=== PATIENT | female | born 1945 | race Caucasian/White ===

== ENCOUNTER 2019-12-20 14:38 | Observation (INO) | payer MEDICARE, BC ==
--- NOTE | 2019-12-20 15:27 | ED ---
General Adult HPI - General Chief complaint: Arrhythmia/Palpitations Stated complaint: Abnormal EKG Time Seen by Provider: 12/20/19 14:56 Source: patient, RN notes reviewed, old records reviewed Mode of arrival: ambulatory Limitations: no limitations - History of Present Illness Initial comments: 74-year-old female history of hypertension presenting for evaluation of palpitations.. Patient has had 3 weeks of palpitations, she was initiated on a blood pressure medication a proximally 3 weeks ago and on certain of the name of this medication. She denies any associated chest pain or dyspnea. She denies fever or chills. She denies abdominal pain nausea or vomiting. No diarrhea. She has been eating and drinking normally. She has history of mitral valve prolapse, no known coronary artery disease. She was sent in for evaluation from her primary care physician with EKG showing left bundle branch block with no history. Patient denies any chest pain in the last 3 weeks. - Related Data Allergies Allergy/AdvReac Type Severity Reaction Status Date / Time Penicillins Allergy Swelling Verified 12/20/19 14:45 Review of Systems ROS Statement: Those systems with pertinent positive or pertinent negative responses have been documented in the HPI. ROS Other: All systems not noted in ROS Statement are negative. Past Medical History Past Medical History: Cancer History of Any Multi-Drug Resistant Organisms: None Reported Past Surgical History: Breast Surgery Additional Past Surgical History / Comment(s): multiple facial surgeries Past Psychological History: No Psychological Hx Reported Smoking Status: Never smoker Past Alcohol Use History: None Reported Past Drug Use History: None Reported General Exam Limitations: no limitations General appearance: alert, in no apparent distress Head exam: Present: atraumatic, normocephalic Eye exam: Present: normal appearance, PERRL ENT exam: Present: normal exam Neck exam: Present: normal inspection, tenderness Respiratory exam: Present: normal lung sounds bilaterally. Absent: respiratory distress, wheezes, rhonchi Cardiovascular Exam: Present: regular rate, normal rhythm GI/Abdominal exam: Present: soft. Absent: distended, tenderness, guarding, rebound Extremities exam: Present: normal inspection, normal capillary refill. Absent: pedal edema Back exam: Present: normal inspection Neurological exam: Present: alert, oriented X3, CN II-XII intact. Absent: motor sensory deficit Psychiatric exam: Present: normal affect, normal mood Skin exam: Present: warm, dry, intact. Absent: cyanosis, diaphoretic Course Vital Signs 12/20/19 12/20/19 12/20/19 14:39 16:00 16:30 Temperature 97.8 F Pulse Rate 100 87 90 Respiratory 20 18 18 Rate Blood Pressure 160/79 144/70 142/68 O2 Sat by Pulse 99 Oximetry EKG Findings - EKG Comments: EKG Findings:: EKG: Sinus tachycardia, left bundle branch block, rate of 104, ID interval 150, QRS duration 132 and a QTC 512, no old for comparison. Medical Decision Making - Medical Decision Making 74 female presenting with palpitations and left bundle branch block at its primary care office. She sent into the emergency department for evaluation. She has no known history of left bundle branch block, no old EKG for comparison. She is asymptomatic at the time my evaluation. She denies any chest pain in the past 3 weeks. No dyspnea. Only palpitations. She was recently initiated on 2 antihypertensive medication but is uncertain what this dictation is. She is well-appearing with stable vitals. She has a left bundle branch block on EKG and mild sinus tachycardia. Workup reveals normal CBC, she has an elevated d- dimer at 3 which is evaluated with CT angiography of the chest and is negative for pulmonary embolism. She has normal electrolytes. She has a negative troponin. She will be kept in observation for telemetry, cardiology consultation, and serial cardiac enzymes as this is a new left bundle branch block. - Lab Data Result diagrams: 12/20/19 15:09 12/20/19 15:09 Lab Results 12/20/19 12/20/19 12/20/19 Range/Units 15:09 15:09 15:09 WBC 9.4 (3.8-10.6) k/uL RBC 4.53 (3.80-5.40) m/uL Hgb 14.1 (11.4-16.0) gm/dL Hct 42.9 (34.0-46.0) % MCV 94.8 (80.0-100.0) fL MCH 31.1 (25.0-35.0) pg MCHC 32.8 (31.0-37.0) g/dL RDW 12.4 (11.5-15.5) % Plt Count 311 (150-450) k/uL Neutrophils % 61 % Lymphocytes % 28 % Monocytes % 6 % Eosinophils % 2 % Basophils % 1 % Neutrophils # 5.7 (1.3-7.7) k/uL Lymphocytes # 2.7 (1.0-4.8) k/uL Monocytes # 0.6 (0-1.0) k/uL Eosinophils # 0.2 (0-0.7) k/uL Basophils # 0.1 (0-0.2) k/uL PT 9.4 (9.0-12.0) sec INR 0.9 (<1.2) APTT 20.6 L (22.0-30.0) sec D-Dimer (<0.60) mg/L FEU Sodium 139 (137-145) mmol/L Potassium 4.5 (3.5-5.1) mmol/L Chloride 105 (98-107) mmol/L Carbon Dioxide 22 (22-30) mmol/L Anion Gap 12 mmol/L BUN 13 (7-17) mg/dL Creatinine 0.57 (0.52-1.04) mg/dL Est GFR (CKD-EPI)AfAm >90 (>60 ml/min/1.73 sqM) Est GFR (CKD-EPI)NonAf >90 (>60 ml/min/1.73 sqM) Glucose 98 (74-99) mg/dL Calcium 9.9 (8.4-10.2) mg/dL Magnesium 2.1 (1.6-2.3) mg/dL Total Bilirubin 1.0 (0.2-1.3) mg/dL AST 32 (14-36) U/L ALT 16 (4-34) U/L Alkaline Phosphatase 169 H (38-126) U/L Troponin I (0.000-0.034) ng/mL Total Protein 8.5 H (6.3-8.2) g/dL Albumin 4.5 (3.5-5.0) g/dL Urine Color Urine Appearance (Clear) Urine pH (5.0-8.0) Ur Specific [place] (1.001-1.035) Urine Protein (Negative) Urine Glucose (UA) (Negative) Urine Ketones (Negative) Urine Blood (Negative) Urine Nitrite (Negative) Urine Bilirubin (Negative) Urine Urobilinogen (<2.0) mg/dL Ur Leukocyte Esterase (Negative) Urine RBC (0-5) /hpf Urine WBC (0-5) /hpf Ur Squamous Epith Cells (0-4) /hpf Hyaline Casts (0-2) /lpf Urine Mucus (None) /hpf 12/20/19 12/20/19 12/20/19 Range/Units 15:09 15:09 16:36 WBC (3.8-10.6) k/uL RBC (3.80-5.40) m/uL Hgb (11.4-16.0) gm/dL Hct (34.0-46.0) % MCV (80.0-100.0) fL MCH (25.0-35.0) pg MCHC (31.0-37.0) g/dL RDW (11.5-15.5) % Plt Count (150-450) k/uL Neutrophils % % Lymphocytes % % Monocytes % % Eosinophils % % Basophils % % Neutrophils # (1.3-7.7) k/uL Lymphocytes # (1.0-4.8) k/uL Monocytes # (0-1.0) k/uL Eosinophils # (0-0.7) k/uL Basophils # (0-0.2) k/uL PT (9.0-12.0) sec INR (<1.2) APTT (22.0-30.0) sec D-Dimer 3.02 H (<0.60) mg/L FEU Sodium (137-145) mmol/L Potassium (3.5-5.1) mmol/L Chloride (98-107) mmol/L Carbon Dioxide (22-30) mmol/L Anion Gap mmol/L BUN (7-17) mg/dL Creatinine (0.52-1.04) mg/dL Est GFR (CKD-EPI)AfAm (>60 ml/min/1.73 sqM) Est GFR (CKD-EPI)NonAf (>60 ml/min/1.73 sqM) Glucose (74-99) mg/dL Calcium (8.4-10.2) mg/dL Magnesium (1.6-2.3) mg/dL Total Bilirubin (0.2-1.3) mg/dL AST (14-36) U/L ALT (4-34) U/L Alkaline Phosphatase (38-126) U/L Troponin I <0.012 (0.000-0.034) ng/mL Total Protein (6.3-8.2) g/dL Albumin (3.5-5.0) g/dL Urine Color Yellow Urine Appearance Clear (Clear) Urine pH 5.5 (5.0-8.0) Ur Specific [place] 1.011 (1.001-1.035) Urine Protein Negative (Negative) Urine Glucose (UA) Negative (Negative) Urine Ketones Negative (Negative) Urine Blood Small H (Negative) Urine Nitrite Negative (Negative) Urine Bilirubin Negative (Negative) Urine Urobilinogen <2.0 (<2.0) mg/dL Ur Leukocyte Esterase Trace H (Negative) Urine RBC 4 (0-5) /hpf Urine WBC 3 (0-5) /hpf Ur Squamous Epith Cells <1 (0-4) /hpf Hyaline Casts 1 (0-2) /lpf Urine Mucus Rare H (None) /hpf Disposition Clinical Impression: Palpitations, Left bundle branch block (LBBB) Disposition: ADMITTED IP TO THIS [facility] Condition: Stable Is patient prescribed a controlled substance at d/c from ED?: No Referrals: Melissa Barillas III, MD [Primary Care Provider] - 1-2 days Decision to Admit Reason: Admit from EC Decision Date: 12/20/19 Decision Time: 18:08
[2019-12-20 15:30] LABS: Basophils # (A) 0.1 k/uL (0-0.2); Basophils % (A) 1 %; Eosinophils # (A) 0.2 k/uL (0-0.7); Eosinophils % (A) 2 %; HCT 42.9 % (34.0-46.0); HGB 14.1 gm/dL (11.4-16.0); Lymphocytes # (A) 2.7 k/uL (1.0-4.8); Lymphocytes % (A) 28 %; MCH 31.1 pg (25.0-35.0); MCHC 32.8 g/dL (31.0-37.0); MCV 94.8 fL (80.0-100.0); Mean Platelet Volume 7.6; Monocytes # (A) 0.6 k/uL (0-1.0); Monocytes % (A) 6 %; Neutrophils # (A) 5.7 k/uL (1.3-7.7); Neutrophils % (A) 61 %; Platelet Count 311 k/uL (150-450); RBC 4.53 m/uL (3.80-5.40); RDW 12.4 % (11.5-15.5); WBC 9.4 k/uL (3.8-10.6)
--- NOTE | 2019-12-20 15:32 | XR ---
EXAMINATION TYPE: XR chest 2V DATE OF EXAM: 12/20/2019 COMPARISON: NONE HISTORY: Shortness of breath TECHNIQUE: Frontal and lateral views of the chest are obtained. FINDINGS: Scattered senescent parenchymal changes noted. Hyperinflation compatible with COPD. No evidence for infiltrate. No evidence for atelectasis. Heart size is stable. Mediastinal structures are stable and grossly unremarkable. No evidence for hilar prominence. Degenerative changes dorsal spine. IMPRESSION: 1. No evidence for acute pulmonary disease.
[2019-12-20 15:36] LABS: ALT 16 U/L (4-34); AST 32 U/L (14-36); African American GFR (CKD) >90 (>60 ml/min/1.73 sqM); Albumin 4.5 g/dL (3.5-5.0); Alkaline Phosphatase 169 U/L (38-126); Anion Gap 12 mmol/L; Blood Urea Nitrogen 13 mg/dL (7-17); Calcium 9.9 mg/dL (8.4-10.2); Carbon Dioxide 22 mmol/L (22-30); Chloride 105 mmol/L (98-107); Glucose 98 mg/dL (74-99); Magnesium 2.1 mg/dL (1.6-2.3); Non-African American GFR(CKD) >90 (>60 ml/min/1.73 sqM); Potassium 4.5 mmol/L (3.5-5.1); Sodium 139 mmol/L (137-145); Total Protein 8.5 g/dL (6.3-8.2)
[2019-12-20 15:42] LABS: INR 0.9 (<1.2); Prothrombin Time 9.4 sec (9.0-12.0)
[2019-12-20 15:43] LABS: Partial Thromboplastin Time 20.6 sec (22.0-30.0)
[2019-12-20 16:53] LABS: Appearance,Urine Clear (Clear); Bilirubin,Urine Negative (Negative); Blood,Urine Small (Negative); Color,Urine Yellow; Glucose,Urine (UA) Negative (Negative); Hyaline Casts,Urine 1 /lpf (0-2); Ketones,Urine Negative (Negative); Leukocyte Esterase,Urine Trace (Negative); Mucus,Urine Rare /hpf; Nitrite,Urine Negative (Negative); PH, Urine 5.5 (5.0-8.0); Protein,Urine Negative (Negative); RBC,Urine 4 /hpf (0-5); Specific Gravity,Urine 1.011 (1.001-1.035); Squamous Epithelial Cell,Urine <1 /hpf (0-4); Urobilinogen,Urine <2.0 mg/dL (<2.0); WBC,Urine 3 /hpf (0-5)
--- NOTE | 2019-12-20 17:46 | CT ---
EXAMINATION TYPE: CT angio chest DATE OF EXAM: 12/20/2019 COMPARISON: None HISTORY: Elevated d-dimer. CT DLP: 247.2 mGycm Automated exposure control for dose reduction was used. CONTRAST: Performed with IV Contrast, patient injected with 100 mL of Isovue 370. Multiple axial sections were obtained from the thoracic inlet to the diaphragm with intravenous contr ast. There are 3-D post processed images. Mediastinum is intact. Thoracic aorta is atheromatous. The ascending aorta measures 3.5 cm. There is no evidence of dissection. There is no mediastinal adenopathy. There are no hilar masses. There is normal contrast opacification of the pulmonary arteries. There are no filling defects. The lungs are clear of infiltrate. There is no evidence of a pulmonary mass. There is mild reticular density at the right lung apex consistent with scarring. There is no pleural effusion or pneumothorax . There are calcified gallstones. The bony thorax is intact. IMPRESSION: No evidence of pulmonary embolism.
[2019-12-20] MEDS ORDERED: SODIUM CHLORIDE 0.9% 500 ML 500 ML IV ONE (17:58)
[2019-12-20] MEDS ORDERED: ASPIRIN 325 MG TAB PO STA (17:58)
[2019-12-20] MEDS ORDERED: NALOXONE 0.4 MG/ML 1 ML VIAL IV PRN (18:05)
[2019-12-20] MEDS ORDERED: ACETAMINOPHEN TAB 325 MG TAB PO PRN (18:05)
[2019-12-20] MEDS: SODIUM CHLORIDE 0.9% 1,000 ML IV SCH ×2 (18:40→21:37)
--- NOTE | 2019-12-21 09:53 | P.CRDCN ---
History of Present Illness Consult date: 12/21/19 Requesting physician: Mercedez Duque Consult reason: atrial fibrillation Chief complaint: Palpitations History of present illness: This is a pleasant 74-year-old female with recent diagnosis of hypertension, nondiabetic, she is unsure of her cholesterol, she is a nonsmoker, rarely drinks alcohol, has one cup of coffee per day. Presents to the hospital with symptoms of palpitations. Patient states she's been getting intermittent palpitations off and on for approximately one month duration, she does state at times with that that she gets mild dizziness, she denies any shortness of breath, no chest discomfort, no syncope. EKG on presentation here showed a sinus tachycardia with a left bundle-branch block pattern, nonspecific ST-T wave changes. On review of the monitor strips, patient was noted to have paroxysmal atrial fibrillation. Blood pressure 120/70 with a heart rate of 80, 96% on room air. White blood cell count 9.4, hemoglobin 14.1, platelet count 311. D-dimer is 3.02, sodium 139, potassium 4.5, BUN 13, creatinine 0.5. Troponins are negative 3. At the time of my examination this morning, the patient feels well, she denies any palpitations at present time. Past Medical History Past Medical History: Cancer, Hypertension, Skin Disorder Additional Past Medical History / Comment(s): INTERSTITAL CYCSTITIS History of Any Multi-Drug Resistant Organisms: None Reported Past Surgical History: Breast Surgery Additional Past Surgical History / Comment(s): multiple facial surgeries Past Psychological History: No Psychological Hx Reported Smoking Status: Never smoker Past Alcohol Use History: None Reported Past Drug Use History: None Reported - Past Family History Father Family Medical History: Diabetes Mellitus, Myocardial Infarction ([place]) Medications and Allergies Home Medications Medication Instructions Recorded Confirmed Type amLODIPine [Norvasc] 5 mg PO DAILY 12/20/19 12/20/19 History Allergies Allergy/AdvReac Type Severity Reaction Status Date / Time Penicillins Allergy Swelling Verified 12/20/19 18:56 Physical Exam Vitals: Vital Signs Temp Pulse Pulse Resp BP BP Pulse Ox 12/21/19 08:00 97.9 F 85 18 121/70 96 12/21/19 04:00 98.3 F 78 17 142/68 96 12/21/19 00:00 97.2 F L 81 17 126/62 95 12/20/19 21:12 98.7 F 82 18 118/73 94 L 12/20/19 20:00 98.7 F 82 18 118/73 94 L 12/20/19 18:56 90 16 148/71 97 12/20/19 18:00 132/80 12/20/19 17:00 93 16 132/64 97 12/20/19 16:30 90 18 142/68 12/20/19 16:00 87 18 144/70 12/20/19 14:39 97.8 F 100 20 160/79 99 Intake and Output 12/20/19 12/21/19 12/21/19 22:59 06:59 14:59 Intake Total 320 Output Total 180 Balance -180 320 Intake: Oral 320 Output: Urine 180 Other: Voiding Method Toilet Toilet # Voids 1 1 Weight 73.255 kg 71.5 kg PHYSICAL EXAMINATION: GENERAL: 74-year-old female in no acute distress at the time of my examination HEENT: Head is atraumatic, normocephalic. Pupils equal, round. Sclera anicteric. Conjunctiva are clear. Mucous membranes of the mouth are moist. Neck is supple. There is no elevated jugular venous pressure. No carotid br uit is heard. HEART EXAMINATION: Heart S1, S2 normal. No murmur or gallop heard. CHEST EXAMINATION: Lungs are clear to auscultation and precussion. No chest wall tenderness is noted on palpation or with deep breathing. ABDOMEN: Soft, nontender. Bowel sounds are heard. No organomegaly noted. EXTREMITIES: 2+ peripheral pulses with no evidence of peripheral edema and no calf tenderness noted. NEUROLOGIC patient is awake, alert and oriented 3 . . Results 12/20/19 15:09 12/20/19 15:09 Cardiac Enzymes 12/20/19 12/20/19 12/20/19 Range/Units 15:09 15:09 21:16 AST 32 (14-36) U/L Troponin I <0.012 <0.012 (0.000-0.034) ng/mL 12/21/19 Range/Units 03:43 AST (14-36) U/L Troponin I <0.012 (0.000-0.034) ng/mL Coagulation 12/20/19 Range/Units 15:09 PT 9.4 (9.0-12.0) sec APTT 20.6 L (22.0-30.0) sec CBC 12/20/19 Range/Units 15:09 WBC 9.4 (3.8-10.6) k/uL RBC 4.53 (3.80-5.40) m/uL Hgb 14.1 (11.4-16.0) gm/dL Hct 42.9 (34.0-46.0) % Plt Count 311 (150-450) k/uL Comprehensive Metabolic Panel 12/20/19 Range/Units 15:09 Sodium 139 (137-145) mmol/L Potassium 4.5 (3.5-5.1) mmol/L Chloride 105 (98-107) mmol/L Carbon Dioxide 22 (22-30) mmol/L BUN 13 (7-17) mg/dL Creatinine 0.57 (0.52-1.04) mg/dL Glucose 98 (74-99) mg/dL Calcium 9.9 (8.4-10.2) mg/dL AST 32 (14-36) U/L ALT 16 (4-34) U/L Alkaline Phosphatase 169 H (38-126) U/L Total Protein 8.5 H (6.3-8.2) g/dL Albumin 4.5 (3.5-5.0) g/dL Current Medications Generic Name Dose Route Start Last Admin Trade Name Freq PRN Reason Stop Dose Admin Acetaminophen 650 mg 12/20/19 18:05 Tylenol Tab PO Q6HR PRN Mild Pain or Fever > 100.5 Sodium Chloride 1,000 mls @ 20 mls/hr 12/20/19 18:15 12/20/19 21:37 Saline 0.9% IV 20 mls/hr .Q24H SULTANA Administration Naloxone HCl 0.2 mg 12/20/19 18:05 Narcan IV Q2M PRN Opioid Reversal Intake and Output 12/20/19 12/21/19 12/21/19 22:59 06:59 14:59 Intake Total 320 Output Total 180 Balance -180 320 Intake: Oral 320 Output: Urine 180 Other: Voiding Method Toilet Toilet # Voids 1 1 Weight 73.255 kg 71.5 kg 12/20/19 15:09 12/20/19 15:09 EKG Interpretations (text) EKG shows a sinus tachycardia with left bundle branch block pattern Assessment and Plan Plan: Assessment and plan #1 symptoms of palpitations with associated dizziness, evidence of paroxysmal atrial fibrillation on the monitor #2 hypertension Plan We will obtain an echocardiogram with Doppler study as well as a TSH level. Patient's chadsvasc score is 3, which puts her at a 4.6% risk of stroke/TIA. I did educate the patient regarding anticoagulation for stroke prevention. We'll start the patient on Eliquis, as well as low-dose beta tiffanie. Further recommendations to follow. DNP note has been reviewed, I agree with a documented findings and plan of care. Patient was seen and examined.
[2019-12-21] MEDS: METOPROLOL TARTRATE 25 MG TAB PO SCH (10:50)
--- NOTE | 2019-12-21 13:33 | P.CRDCN ---
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 Bains/Fernanda Gan/Darya Garcia See full dictation by Dr. hussein Past Medical History Past Medical History: Cancer, Hypertension, Skin Disorder Additional Past Medical History / Comment(s): INTERSTITAL CYCSTITIS History of Any Multi-Drug Resistant Organisms: None Reported Past Surgical History: Breast Surgery Additional Past Surgical History / Comment(s): multiple facial surgeries Past Psychological History: No Psychological Hx Reported Smoking Status: Never smoker Past Alcohol Use History: None Reported Past Drug Use History: None Reported - Past Family History Father Family Medical History: Diabetes Mellitus, Myocardial Infarction ([place]) Medications and Allergies Home Medications Medication Instructions Recorded Confirmed Type amLODIPine [Norvasc] 5 mg PO DAILY 12/20/19 12/20/19 History Allergies Allergy/AdvReac Type Severity Reaction Status Date / Time Penicillins Allergy Swelling Verified 12/20/19 18:56 Physical Exam Vitals: Vital Signs Temp Pulse Pulse Resp BP BP Pulse Ox 12/21/19 12:15 69 19 115/65 96 12/21/19 08:00 97.9 F 85 18 121/70 96 12/21/19 04:00 98.3 F 78 17 142/68 96 12/21/19 00:00 97.2 F L 81 17 126/62 95 12/20/19 21:12 98.7 F 82 18 118/73 94 L 12/20/19 20:00 98.7 F 82 18 118/73 94 L 12/20/19 18:56 90 16 148/71 97 12/20/19 18:00 132/80 12/20/19 17:00 93 16 132/64 97 12/20/19 16:30 90 18 142/68 12/20/19 16:00 87 18 144/70 12/20/19 14:39 97.8 F 100 20 160/79 99 Intake and Output 12/20/19 12/21/1920 22:59 06:59 14:59 Intake Total 320 Output Total 180 Balance -180 320 Intake: Oral 320 Output: Urine 180 Other: Voiding Method Toilet Toilet # Voids 1 1 1 Weight 73.255 kg 71.5 kg Results 12/20/19 15:09 12/20/19 15:09 Cardiac Enzymes 12/20/19 12/20/19 12/20/19 Range/Units 15:09 15:09 21:16 AST 32 (14-36) U/L Troponin I <0.012 <0.012 (0.000-0.034) ng/mL 12/21/19 Range/Units 03:43 AST (14-36) U/L Troponin I <0.012 (0.000-0.034) ng/mL Coagulation 12/20/19 Range/Units 15:09 PT 9.4 (9.0-12.0) sec APTT 20.6 L (22.0-30.0) sec CBC 12/20/19 Range/Units 15:09 WBC 9.4 (3.8-10.6) k/uL RBC 4.53 (3.80-5.40) m/uL Hgb 14.1 (11.4-16.0) gm/dL Hct 42.9 (34.0-46.0) % Plt Count 311 (150-450) k/uL Comprehensive Metabolic Panel 12/20/19 Range/Units 15:09 Sodium 139 (137-145) mmol/L Potassium 4.5 (3.5-5.1) mmol/L Chloride 105 (98-107) mmol/L Carbon Dioxide 22 (22-30) mmol/L BUN 13 (7-17) mg/dL Creatinine 0.57 (0.52-1.04) mg/dL Glucose 98 (74-99) mg/dL Calcium 9.9 (8.4-10.2) mg/dL AST 32 (14-36) U/L ALT 16 (4-34) U/L Alkaline Phosphatase 169 H (38-126) U/L Total Protein 8.5 H (6.3-8.2) g/dL Albumin 4.5 (3.5-5.0) g/dL Current Medications Generic Name Dose Route Start Last Admin Trade Name Freq PRN Reason Stop Dose Admin Acetaminophen 650 mg 12/20/19 18:05 Tylenol Tab PO Q6HR PRN Mild Pain or Fever > 100.5 Apixaban 5 mg 12/21/19 21:00 Eliquis PO BID SULTANA Sodium Chloride 1,000 mls @ 20 mls/hr 12/20/19 18:15 12/20/19 21:37 Saline 0.9% IV 20 mls/hr .Q24H SULTANA Administration Metoprolol Tartrate 25 mg 12/21/19 10:00 12/21/19 10:50 Lopressor PO 25 mg DAILY SULTANA Administration Naloxone HCl 0.2 mg 12/20/19 18:05 Narcan IV Q2M PRN Opioid Reversal Intake and Output 12/20/19 12/21/19 12/21/19 22:59 06:59 14:59 Intake Total 320 Output Total 180 Balance -180 320 Intake: Oral 320 Output: Urine 180 Other: Voiding Method Toilet Toilet # Voids 1 1 1 Weight 73.255 kg 71.5 kg 12/20/19 15:09 12/20/19 15:09
[2019-12-21] MEDS: APIXABAN 5 MG TAB PO SCH (19:51)
--- NOTE | 2019-12-21 21:56 | P.HPIM ---
History of Present Illness H&P Date: 12/21/19 Chief Complaint: Palpitations Patient is a 74-year-old female with a known history of breast cancer status post chemoradiation and radical mastectomy, hypertension and history of multiple facial surgeries came to ER with complaints of palpitations for the past 3-4 weeks. Denied any complaints of chest pain. No complaints of shortness of breath. Denied any abdominal pain nausea vomiting. No cough or sputum production. Patient has been having palpitations on and off and sometimes gets dizzy. No complaints of headache or syncopal episodes. EKG on admission showed sinus tachycardia with left bundle branch block with no ST-T wave elevations or changes. Patient was admitted to the hospital due to abnormal EKG and cardiology was consulted. Rhythm strips was noted to have paroxysmal atrial fibrillation with controlled heart rate. Patient was found have elevated d-dimer 3.02, CT angiogram showed no evidence of pulmonary embolism. BUN 13 and creatinine 0.5 potassium 4.5 troponin 3 negative Chest x-ray showed no acute cardio pulmonary process UA negative for infection Patient was started on metoprolol and anticoagulation the form of Eliquis. Review of Systems Constitutional: Patient denies any fever or chills . No generalized weakness or weight loss. Abdomen: Patient denied nausea vomiting and diarrhea and abdominal pain. Cardiovascular: Patient denies any chest pain or short of breath. Patient does have palpitations. No leg swelling. Respiratory: patient denied any cough is from production. No shortness of breath Neurologic: Patient denied any numbness or tingling headache. Musculoskeletal: Patient denies any complaints of joint swelling or deformity. Skin: Negative Psychiatric: Negative Endocrine: No heat or cold intolerance. No recent weight gain. Genitourinary: No dysuria or hematuria. All other 14 point ROS negative except the above Past Medical History Past Medical History: Cancer, Hypertension, Skin Disorder Additional Past Medical History / Comment(s): INTERSTITAL CYCSTITIS History of Any Multi-Drug Resistant Organisms: None Reported Past Surgical History: Breast Surgery Additional Past Surgical History / Comment(s): multiple facial surgeries Past Psychological History: No Psychological Hx Reported Smoking Status: Never smoker Past Alcohol Use History: None Reported Past Drug Use History: None Reported - Past Family History Father Family Medical History: Diabetes Mellitus, Myocardial Infarction ([place]) Medications and Allergies Home Medications Medication Instructions Recorded Confirmed Type amLODIPine [Norvasc] 5 mg PO DAILY 12/20/19 12/20/19 History Allergies Allergy/AdvReac Type Severity Reaction Status Date / Time Penicillins Allergy Swelling Verified 12/20/19 18:56 Physical Exam Vitals: Vital Signs Temp Pulse Pulse Resp BP BP Pulse Ox 12/21/19 08:00 97.9 F 85 18 121/70 96 12/21/19 04:00 98.3 F 78 17 142/68 96 12/21/19 00:00 97.2 F L 81 17 126/62 95 12/20/19 21:12 98.7 F 82 18 118/73 94 L 12/20/19 20:00 98.7 F 82 18 118/73 94 L 12/20/19 18:56 90 16 148/71 97 12/20/19 18:00 132/80 12/20/19 17:00 93 16 132/64 97 12/20/19 16:30 90 18 142/68 12/20/19 16:00 87 18 144/70 12/20/19 14:39 97.8 F 100 20 160/79 99 Intake and Output 12/20/19 12/21/19 12/21/19 22:59 06:59 14:59 Intake Total 320 Output Total 180 Balance -180 320 Intake: Oral 320 Output: Urine 180 Other: Voiding Method Toilet Toilet # Voids 1 1 Weight 73.255 kg 71.5 kg PHYSICAL EXAMINATION: Patient is lying in the bed comfortably, no acute distress, awake alert and oriented.. HEENT: Normocephalic. Neck is supple. Pupils reactive. Nostrils clear. Oral cavity is moist. Ears reveal no drainage. Neck reveals no JVD, carotid bruits, or thyromegaly. CHEST EXAMINATION: Trachea is central. Symmetrical expansion. Lung ashraf clear to auscultation and percussion. CARDIAC: Normal S1, S2 with no gallops. No murmurs ABDOMEN: Soft. Bowel sounds normal. No organomegaly. No abdominal bruits. Extremities: reveal no edema. No clubbing or cyanosis Neurologically awake, alert, oriented x3 with well-coordinated movements. No focal deficits noted Skin: No rash or skin lesions. Psychiatric: Coperative. Nonsuicidal Musculoskeletal: No joint swelling or deformity. Normal range of motion. Results CBC & Chem 7: 12/20/19 15:09 12/20/19 15:09 Labs: Abnormal Lab Results - Last 24 Hours (Table) 12/20/19 12/20/19 12/20/19 Range/Units 15:09 15:09 15:09 APTT 20.6 L (22.0-30.0) sec D-Dimer 3.02 H (<0.60) mg/L FEU Alkaline Phosphatase 169 H (38-126) U/L Total Protein 8.5 H (6.3-8.2) g/dL TSH (0.465-4.680) mIU/L Urine Blood (Negative) Ur Leukocyte Esterase (Negative) Urine Mucus (None) /hpf 12/20/19 12/21/19 Range/Units 16:36 03:43 APTT (22.0-30.0) sec D-Dimer (<0.60) mg/L FEU Alkaline Phosphatase (38-126) U/L Total Protein (6.3-8.2) g/dL TSH 4.990 H (0.465-4.680) mIU/L Urine Blood Small H (Negative) Ur Leukocyte Esterase Trace H (Negative) Urine Mucus Rare H (None) /hpf Thrombosis Risk Factor Assmnt - DVT/VTE Prophylaxis DVT/VTE Prophylaxis: Pharmacologic Prophylaxis ordered - Choose All That Apply Each Factor Represents 1 point: Obesity (BMI >25) Each Risk Factor Represents 2 Points: Age 61-74 years Thrombosis Risk Factor Assessment Total Risk Factor Score: 3 Thrombosis Risk Factor Assessment Level: Moderate Risk Assessment and Plan Assessment: New onset paroxysmal atrial fibrillation Palpitations secondary to above Left bundle branch block in the 12-lead EKG Elevated d-dimer. CT angiogram of the chest showed no pulmonary embolism Elevated TSH level. Free T4 level is within normal limits. Hypertension History of breast cancer status post chemoradiation and surgery No history of prior smoking Plan: Patient will be continued on any monitoring. Started on anticoagulation in the form of Eliquis and metoprolol at low-dose for rate control. 2-D echocardiogram was ordered. Cardiology is following. Further recommendations based on the clinical course. Time with Patient: Greater than 30
[2019-12-22] MEDS: APIXABAN 5 MG TAB PO SCH (08:47)
[2019-12-22] MEDS: METOPROLOL TARTRATE 25 MG TAB PO SCH (08:47)
[2019-12-22 10:06] LABS: Basophils # (A) 0.1 k/uL (0-0.2); Basophils % (A) 1 %; Eosinophils # (A) 0.3 k/uL (0-0.7); Eosinophils % (A) 4 %; HCT 40.1 % (34.0-46.0); HGB 12.9 gm/dL (11.4-16.0); Lymphocytes # (A) 1.9 k/uL (1.0-4.8); Lymphocytes % (A) 27 %; MCH 31.3 pg (25.0-35.0); MCHC 32.2 g/dL (31.0-37.0); Mean Platelet Volume 7.3; Monocytes # (A) 0.3 k/uL (0-1.0); Monocytes % (A) 5 %; Neutrophils # (A) 4.2 k/uL (1.3-7.7); Neutrophils % (A) 62 %; Platelet Count 270 k/uL (150-450); RBC 4.13 m/uL (3.80-5.40); RDW 12.5 % (11.5-15.5); WBC 6.8 k/uL (3.8-10.6)
[2019-12-22 10:24] LABS: African American GFR (CKD) >90 (>60 ml/min/1.73 sqM); Anion Gap 12 mmol/L; Blood Urea Nitrogen 15 mg/dL (7-17); Calcium 8.9 mg/dL (8.4-10.2); Carbon Dioxide 22 mmol/L (22-30); Chloride 106 mmol/L (98-107); Glucose 200 mg/dL (74-99); Non-African American GFR(CKD) >90 (>60 ml/min/1.73 sqM); Potassium 3.7 mmol/L (3.5-5.1); Sodium 140 mmol/L (137-145)
--- NOTE | 2019-12-22 11:00 | ECHOF ---
Referral Reason:atrial flutter MEASUREMENTS -------- HEIGHT: 162.6 cm WEIGHT: 71.2 kg BP: 121/70 RVIDd: 3.7 cm (< 3.3) IVSd: 1.0 cm (0.6 - 1.1) LVIDd: 4.5 cm (3.9 - 5.3) LVPWd: 1.0 cm (0.6 - 1.1) IVSs: 1.4 cm LVIDs: 3.0 cm LVPWs: 1.3 cm LA Diam: 3.4 cm (2.7 - 3.8) LAESV Index (A-L): 23.98 ml/m Ao Diam: 3.1 cm (2.0 - 3.7) AV Cusp: 2.0 cm (1.5 - 2.6) LA Diam: 3.5 cm (2.7 - 3.8) MV EXCURSION: 26.030 mm (> 18.000) MV EF SLOPE: 96 mm/s (70 - 150) EPSS: 1.9 cm MV E Ede: 0.53 m/s MV DecT: 231 ms MV A Ede: 0.93 m/s MV E/A Ratio: 0.57 RAP: 5.00 mmHg RVSP: 33.03 mmHg FINDINGS -------- Undetermined rhythm. This was a technically adequate study. LV size, wall thickness and systolic function are normal, with an EF greater than 55%. Overall left ventricular systolic function is low-normal with, an EF between 50 - 55 %. The right ventricle is normal in size. The left atrial size is normal. Normal LA size by volume 22+/-6 ml/m2. The right atrial size is normal. There is mild aortic valve sclerosis. There is no evidence of aortic regurgitation. Mild mitral annular calcification present. Mild mitral regurgitation is present. Mild tricuspid regurgitation present. There is no evidence of pulmonary hypertension. The right v entricular systolic pressure, as measured by Doppler, is 33.03mmHg. There is no pulmonic regurgitation present. The aortic root size is normal. There is no pericardial effusion. CONCLUSIONS -------- 1. Undetermined rhythm. 2. This was a technically adequate study. 3. LV size, wall thickness and systolic function are normal, with an EF greater than 55%. 4. Overall left ventricular systolic function is low-normal with, an EF between 50 - 55 %. 5. The right ventricle is normal in size. 6. The left atrial size is normal. 7. Normal LA size by volume 22+/-6 ml/m2. 8. The right atrial size is normal. 9. There is mild aortic valve sclerosis. 10. Mild mitral annular calcification present. 11. Mild mitral regurgitation is present. 12. Mild tricuspid regurgitation present. 13. There is no evidence of pulmonary hypertension. 14. The right ventricular systolic pressure, as measured by Doppler, is 33.03mmHg. 15. There is no pulmonic regurgitation present. 16. The aortic root size is normal. 17. There is no pericardial effusion. ESTATE TAX EXAMINER: Sheila Rutledge RDCS
[2019-12-22 11:46] VITALS: BP 147/74; PULSE 76; RESP 18; TEMP 97.7
--- NOTE | 2019-12-22 12:30 | P.DS ---
Providers Date of admission: 12/20/19 18:05 Expected date of discharge: 12/22/19 Attending physician: Mercedez Duque Consults: 12/20/19 18:05 Consult Physician Routine Consulting Provider: Arben Novak Consult Reason/Comments: LBBB, palpitations Do you want consulting provider notified?: Yes [facility]: Final diagnosis New onset paroxysmal atrial fibrillation Palpitations secondary to above Left bundle branch block in the 12-lead EKG Elevated d-dimer. CT angiogram of the chest showed no pulmonary embolism Elevated TSH level. Free T4 level is within normal limits. Hypertension History of breast cancer status post chemoradiation and surgery No history of prior smoking Discharge disposition Patient is being discharged in a stable condition with guarded prognosis to home and will follow-up with primary care provider along with cardiology in one week as scheduled. Patient will continue on Eliquis along with metoprolol the outpatient setting. Total time taken is 35 minutes. History of present illness Patient is a 74-year-old female with a known history of breast cancer status post chemoradiation and radical mastectomy, hypertension and history of multiple facial surgeries came to ER with complaints of palpitations for the past 3-4 weeks. Denied any complaints of chest pain. No complaints of shortness of jamey th. Denied any abdominal pain nausea vomiting. No cough or sputum production. Patient has been having palpitations on and off and sometimes gets dizzy. No complaints of headache or syncopal episodes. EKG on admission showed sinus tachycardia with left bundle branch block with no ST-T wave elevations or changes. Patient was admitted to the hospital due to abnormal EKG and cardiology was consulted. Rhythm strips was noted to have paroxysmal atrial fibrillation with controlled heart rate. Patient was found have elevated d-dimer 3.02, CT angiogram showed no evidence of pulmonary embolism. BUN 13 and creatinine 0.5 potassium 4.5 troponin 3 negative Chest x-ray showed no acute cardio pulmonary process UA negative for infection Patient was started on metoprolol and anticoagulation the form of Eliquis. Patient underwent an echo showing overall ventricular left systolic function is low to normal with an EF between 50-55% with mild mitral and tricuspid regurgitation present with no evidence of pulmonary hypertension. Patient will be following up with Dr. Bains the outpatient setting as discussed and scheduled. 12/22/2019 Patient is currently sitting up in bed and appears to be in no acute distress. No acute overnight issues. Patient has been up and walking with no difficulties. Currently patient denies any chest pain, shortness of breath, or palpitations. Patient is afebrile. Patient denies any nausea or vomiting and has been tolerating diet. Currently patient's condition is stable and will be discharged today. Patient will follow-up with primary care provider upon discharge along with cardiology in one week. On Exam vital signs are stable. Temp is 97.7F, pulse is 76, respirations are 18, blood pressure is 147/74, oxygen saturation is 96% on room air. Cardio S1, S2 are present. Respiratory system shows clear to auscultation. Abdomen is soft and nontender. Nervous system shows no focal deficits. Please refer to medication reconciliation sheet for a list of medications. Patient Condition at Discharge: Stable Plan - Discharge Summary New Discharge Prescriptions: New Apixaban [Eliquis] 5 mg PO BID 30 Days #60 tab Metoprolol Tartrate [Lopressor] 25 mg PO DAILY 30 Days #30 tab Continue amLODIPine [Norvasc] 5 mg PO DAILY Discharge Medication List amLODIPine [Norvasc] 5 mg PO DAILY 12/20/19 [History] Apixaban [Eliquis] 5 mg PO BID 30 Days #60 tab 12/22/19 [Rx] Metoprolol Tartrate [Lopressor] 25 mg PO DAILY 30 Days #30 tab 12/22/19 [Rx] Follow up Appointment(s)/Referral(s): Jose Luis Bains MD [STAFF PHYSICIAN] - 12/31/19 3:30 pm (Friday) Jez Freeman MD [REFERRING] - 12/24/19 2:00 pm (Friday) Patient Instructions/Handouts: A-fib (Atrial Fibrillation) (DC), Safe Use of Anticoagulants (DC) Activity/Diet/Wound Care/Special Instructions: Activity Limited until follow-up Follow up with primary care provider upon discharge Follow up with cardiology as discussed and scheduled Continue current diet Discharge Disposition: HOME SELF-CARE
--- NOTE | 2019-12-22 14:52 | P.PN ---
Subjective Progress Note Date: 12/22/19 This is a pleasant 74-year-old female with recent diagnosis of hypertension, nondiabetic, she is unsure of her cholesterol, she is a nonsmoker, rarely drinks alcohol, has one cup of coffee per day. Presents to the hospital with symptoms of palpitations. Patient states she's been getting intermittent palpitations off and on for approximately one month duration, she does state at times with that that she gets mild dizziness, she denies any shortness of breath, no chest discomfort, no syncope. EKG on presentation here showed a sinus tachycardia with a left bundle-branch block pattern, nonspecific ST-T wave changes. On review of the monitor strips, patient was noted to have paroxysmal atrial fibrillation. Blood pressure 120/70 with a heart rate of 80, 96% on room air. White blood cell count 9.4, hemoglobin 14.1, platelet count 311. D-dimer is 3.02, sodium 139, potassium 4.5, BUN 13, creatinine 0.5. Troponins are negative 3. At the time of my examination this morning, the patient feels well, she denies any palpitations at present time. 12/22/2019 Patient seen and examined this morning, currently in normal sinus rhythm. Echocardiogram with Doppler study revealed an ejection fraction of 50-55%. Blood pressure 146/70 with a heart rate in the 70s, 96% on room air. White blood cell count 6.8, hemoglobin 12.9, platelet count 270. Sodium 140, potassium 3.7, BUN 15, creatinine 0.6. Objective - Vital Signs Vital signs: Vital Signs Temp 97.7 F 12/22/19 11:25 Pulse 76 12/22/19 11:25 Resp 18 12/22/19 11:25 BP 147/74 12/22/19 11:25 Pulse Ox 96 12/22/19 11:25 Intake & Output 12/21/19 12/22/19 12/22/19 18:59 06:59 18:59 Intake Total 700 480 Balance 700 480 Weight 71.6 kg Intake: Intake, IV Titration 140 Amount Sodium Chloride 0.9% 1, 140 000 ml @ 20 mls/hr IV . Q24H [place] Rx#:[id number] Oral 560 480 Other: Voiding Method Toilet Toilet # Voids 1 1 1 - Exam PHYSICAL EXAMINATION: GENERAL: 74-year-old female in no acute distress at the time of my examination HEENT: Head is atraumatic, normocephalic. Pupils equal, round. Sclera anicteric. Conjunctiva are clear. Mucous membranes of the mouth are moist. Neck is supple. There is no elevated jugular venous pressure. No carotid bruit is heard. HEART EXAMINATION: Heart S1, S2 normal. No murmur or gallop heard. CHEST EXAMINATION: Lungs are clear to auscultation and precussion. No chest wall tenderness is noted on palpation or with deep breathing. ABDOMEN: Soft, nontender. Bowel sounds are heard. No organomegaly noted. EXTREMITIES: 2+ peripheral pulses with no evidence of peripheral edema and no calf tenderness noted. NEUROLOGIC patient is awake, alert and oriented 3 . . - Labs CBC & Chem 7: 12/22/19 09:43 12/22/19 09:43 Labs: Abnormal Lab Results - Last 24 Hours (Table) 12/22/19 Range/Units 09:43 Glucose 200 H (74-99) mg/dL Assessment and Plan Plan: Assessment and plan #1 symptoms of palpitations with associated dizziness, evidence of paroxysmal atrial fibrillation on the monitor #2 hypertension Plan Echocardiogram with Doppler study was performed revealed a normal left ventricular systolic function. Patient overall is doing well. Is currently on anticoagulation as well as beta tiffanie. From our perspective she may be able to be discharged home today to follow-up with Dr. Bains in the office post discharge. DNP note has been reviewed, I agree with a documented findings and plan of care. Patient was seen and examined.
== END 2019-12-22 14:00 | disposition home or self-care (01) ==
LOC: EC 14:38 → 3SCARD 18:05
PROVIDERS: ADMIT Internal Medicine; ATTEND Internal Medicine
DX: I48.0 Paroxysmal atrial fibrillation (principal); R79.89 Other specified abnormal findings of blood chemistry; I10 Essential (primary) hypertension; I44.7 Left bundle-branch block, unspecified; I08.1 Rheumatic disorders of both mitral and tricuspid valves; R94.6 Abnormal results of thyroid function studies; Z83.3 Family history of diabetes mellitus; Z82.49 Family history of ischemic heart disease and other diseases of the circulatory system; Z85.3 Personal history of malignant neoplasm of breast; Z92.3 Personal history of irradiation; Z92.21 Personal history of antineoplastic chemotherapy; Z90.10 Acquired absence of unspecified breast and nipple; Z88.0 Allergy status to penicillin; Z79.899 Other long term (current) drug therapy
CPT/HCPCS: 99285; 36415; 93005; 93306; 85379; 84439; 80053; 80048; 83735; 84443; 84484 ×2; 85025 ×2; 85610; 85730; 81001; 71046; 71275; G0378 ×3; Q9967

== ENCOUNTER → 2020-01-19 | Outpatient (CLI) | payer MEDICARE, BC ==
[2020-01-20 01:30] LABS: Chol/HDL Ratio 3.7; LDL Cholesterol,Calculated 142.6 mg/dL (0.0-131.0); VLDL Calculation 22.4 mg/dL (5.00-40.00)
== END | disposition home or self-care (01) ==
LOC: LABWHC1 15:34
PROVIDERS: ATTEND Physician Assistant
DX: E78.5 Hyperlipidemia, unspecified (principal)
CPT/HCPCS: 36415; 80061

== ENCOUNTER → 2021-05-08 | Outpatient (CLI) | payer MEDICARE, BC ==
[2021-05-08 23:09] LABS: Basophils # (A) 0.07 X 10*3/uL (0.00-0.10); Basophils % (A) 0.8 %; Eosinophils # (A) 0.23 X 10*3/uL (0.04-0.35); Eosinophils % (A) 2.6 %; HCT 42.1 % (37.2-46.3); HGB 13.5 g/dL (12.0-15.0); Lymphocytes % (A) 26.9 %; MCH 31.2 pg (27.0-32.0); MCHC 32.1 g/dL (32.0-37.0); MCV 97.2 fL (80.0-97.0); Mean Platelet Volume 10.1 fL (9.5-12.2); Monocytes # (A) 0.81 X 10*3/uL (0.20-1.00); Monocytes % (A) 9.1 %; Neutrophils # (A) 5.39 X 10*3/uL (1.80-7.70); Neutrophils % (A) 60.4 %; Platelet Count 287 X 10*3/uL (140-440); RBC 4.33 X 10*6/uL (4.10-5.20); RDW 12.7 % (11.5-14.5); WBC 8.92 X 10*3/uL (4.50-10.00)
[2021-05-09 05:49] LABS: % Iron Saturation 21.36 (12.00-45.00)
== END | disposition home or self-care (01) ==
LOC: LABWHC1 15:31
PROVIDERS: ATTEND Internal Medicine Gastroenterology
DX: R19.4 Change in bowel habit (principal)
CPT/HCPCS: 36415; 83540; 83550; 85025

== ENCOUNTER → 2021-05-08 | Outpatient (CLI) | payer MEDICARE, BC ==
--- NOTE | 2021-05-09 07:16 | XR ---
EXAMINATION TYPE: XR abdomen 2V DATE OF EXAM: 05/08/2021 CLINICAL HISTORY: Change in bowel habits. TECHNIQUE: Supine and upright views of the abdomen are obtained. COMPARISON: None. FINDINGS: Gas seen in nondistended stomach. Scattered gas is seen in non-distended small bowel loops . Gas and fecal material is seen in non-distended colon along the periphery. There is no visceromeg boubacar, pneumoperitoneum, or abnormal calcification appreciated. The lung bases are clear. Mild-to-mod erate axial joint space loss and acetabular spurring of both hips. Rounded densities near right super ior lateral acetabulum favor phleboliths, intra-articular loose bodies not entirely excluded. IMPRESSION: Overall nonobstructive bowel gas pattern.
== END | disposition home or self-care (01) ==
LOC: RADXRMAIN 15:52
PROVIDERS: ATTEND Internal Medicine Gastroenterology
DX: R19.4 Change in bowel habit (principal)
CPT/HCPCS: 74019

== ENCOUNTER → 2021-07-25 | Outpatient (CLI) | payer MEDICARE, BC ==
--- NOTE | 2021-07-25 13:30 | BD ---
EXAMINATION TYPE: Axial Bone Density DATE OF EXAM: 07/25/2021 COMPARISON: NONE CLINICAL HISTORY: Height: 63.5 IN Weight: 168 LBS RISK FACTORS HISTORY OF: Active: YES Diet low in dairy products/other sources of calcium: YES Postmenopausal woman: AGE 48 Take estrogen and/or progesterone medications: NOT NOW How long: TOOK CONTROL FOR 10 YEARS MEDICATIONS: Additional Medications: AFIB MEDS, METOPROLOL,CRESTOR, HIGH BLOOD PRESSURE MEDS Additional History: BREAST CANCER WITH CHEMO AND RADIATION EXAM MEASUREMENTS: Bone mineral densitometry was performed using the [employer]zoom System. Bone mineral density as measured about the Lumbar spine is: ----- L1-L4(G/cm2): 1.179 T Score Values are as follows: ----- L2: -0.3 ----- L3: 0.6 ----- L4: -0.3 ----- L1-L4: 0.0 Bone mineral density BASELINE Bone mineral density about the R hip (g/cm2): 0.866 Bone mineral density about the L hip (g/cm2): 0.946 T Score values are as follows: -----R Neck: -1.2 -----L Neck: -0.7 -----R Total: -0.2 -----L Total: -0.1 Bone mineral density BASELINE IMPRESSION: No evidence for osteoporosis or osteopenia. NOTE: T-SCORE=SD OF THE YOUNG ADULT MEAN.
== END | disposition home or self-care (01) ==
LOC: RADBDWWP 12:44
PROVIDERS: ATTEND Family Medicine
DX: C50.919 Malignant neoplasm of unspecified site of unspecified female breast (principal)
CPT/HCPCS: 77080

== ENCOUNTER → 2021-08-27 | Outpatient (CLI) | payer MEDICARE, BC ==
--- NOTE | 2021-08-28 08:06 | CT ---
EXAMINATION TYPE: CT abdomen pelvis wo con DATE OF EXAM: 08/27/2021 HISTORY: VENTRAL HERNIA CT DLP: 489.9 mGycm. Automated Exposure Control for Dose Reduction was Utilized. TECHNIQUE: CT scan of the abdomen and pelvis is performed with oral but without IV contrast. COMPARISON: NONE FINDINGS: Within the limitations of a non-contrast study, the following observations are made. LUNG BASES: Partial visualization of left breast implant and overlying right breast external prosthes is. LIVER/GB: No significant abnormality is appreciated. PANCREAS: No significant abnormality is seen. SPLEEN: No significant abnormality is seen. ADRENALS: No significant abnormality is seen. KIDNEYS: No renal stones or hydronephrosis is present bilaterally. BOWEL: Oral contrast does not reach level of the terminal ileum making evaluation of distal bowel sub optimal. No suspicious small or large bowel dilatation. Mild to moderate focal fecal prominence in th e cecum and right colon. GENITAL ORGANS: Anteverted uterus LYMPH NODES: No greater than 1cm abdominal or pelvic lymph nodes are appreciated. OSSEOUS STRUCTURES: No significant abnormality is seen. OTHER: Focal eventration without definitive hernia defect right mid to lower abdomen extending into t he upper pelvis containing fat and bowel loops, no definitive rectus break, eventration or hernia ext ends from axial image 46 through 69. Mild calcified plaque of aorta extends into branch vessels. Right posterior calcified gluteal phleboliths or injection granulomas axial image 75 noted. IMPRESSION: Focal eventration without definitive hernia defect right mid to lower abdomen extending into the uppe r pelvis containing fat and bowel loops predominantly proximal colon. Mild to moderate proximal colon ic fecal stasis at this level. Overall nonobstructive bowel gas pattern.
== END | disposition home or self-care (01) ==
LOC: RADCTMAIN 16:58
PROVIDERS: ATTEND Surgery
DX: K59.89 Other specified functional intestinal disorders (principal)
CPT/HCPCS: 74176

== ENCOUNTER → 2022-07-02 | Outpatient (CLI) | payer MEDICARE, BC ==
[2022-07-02 10:33] LABS: Basophils % (A) 1.1 %; Eosinophils % (A) 3.2 %; HCT 41.8 % (37.2-46.3); HGB 13.5 g/dL (12.0-15.0); Immature Grans, Automated 0.2 %; Lymphocytes # (A) 3.53 X 10*3/uL (0.90-5.00); Lymphocytes % (A) 37.5 %; MCHC 32.3 g/dL (32.0-37.0); MCV 95.9 fL (80.0-97.0); Mean Platelet Volume 9.9 fL (9.5-12.2); Monocytes # (A) 0.76 X 10*3/uL (0.20-1.00); Monocytes % (A) 8.1 %; NRBC Per 100 WBC 0 /100 WBCS (0.0-0.0); Neutrophils # (A) 4.71 X 10*3/uL (1.80-7.70); Neutrophils % (A) 49.9 %; Platelet Count 293 X 10*3/uL (140-440); RBC 4.36 X 10*6/uL (4.10-5.20); RDW 12.8 % (11.5-14.5); WBC 9.42 X 10*3/uL (4.50-10.00)
[2022-07-02 12:06] LABS: % Iron Saturation 24.06 (12.00-45.00); ALT 9 U/L (8-44); AST 26 U/L (13-35); Albumin 4.2 g/dL (3.8-4.9); Albumin/Globulin Ratio 1.08 (1.60-3.17); Alkaline Phosphatase 118 U/L (41-126); BUN/Creat Ratio 16.13 Ratio (12.00-20.00); Blood Urea Nitrogen 12.9 mg/dL (9.0-27.0); Calcium 9.8 mg/dL (8.7-10.3); Chloride 102 mmol/L (96-109); Chol/HDL Ratio 3.98 Ratio; Globulin 3.9 g/dL (1.6-3.3); Glucose 97 mg/dL (70-110); Iron 77 ug/dL (50-170); LDL Cholesterol,Calculated 172.4 mg/dL (0.0-131.0); Non-African American GFR(CKD) 71.6 (60.0-200.0); Potassium 4.1 mmol/L (3.5-5.5); Sodium 139 mmol/L (135-145); Total Iron Binding Capacity 319 ug/dL (228-460); Total Protein 8.1 g/dL (6.2-8.2)
== END | disposition home or self-care (01) ==
LOC: LABWHC1 07:08
PROVIDERS: ATTEND Family Medicine
DX: Z00.01 Encounter for general adult medical examination with abnormal findings (principal); I10 Essential (primary) hypertension; E78.2 Mixed hyperlipidemia; I48.11 Longstanding persistent atrial fibrillation; J31.0 Chronic rhinitis; L40.8 Other psoriasis; R53.83 Other fatigue; N30.10 Interstitial cystitis (chronic) without hematuria
CPT/HCPCS: 36415; 80053; 80061; 82306; 82607; 82728; 83540; 83550; 84443; 85025

== ENCOUNTER → 2022-08-06 | Outpatient (CLI) | payer MEDICARE, BC ==
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
== END ==
LOC: SLEEP 14:17
PROVIDERS: ATTEND Internal Medicine Critical Care Medicine
DX: G47.33 Obstructive sleep apnea (adult) (pediatric) (principal); I48.0 Paroxysmal atrial fibrillation; I10 Essential (primary) hypertension; Z85.3 Personal history of malignant neoplasm of breast; Z79.01 Long term (current) use of anticoagulants; Z88.0 Allergy status to penicillin
CPT/HCPCS: 99211

== ENCOUNTER → 2022-09-12 | Outpatient (CLI) | payer MEDICARE, BC ==
--- NOTE | 2022-09-13 13:56 | MM ---
Reason for Exam: Screening (asymptomatic). Last mammogram was performed 7 year(s) and 0 month(s) ago. Patient History: Breast cancer, right, age 48. 1993, Mastectomy on the Right side. 1993, Chemotherapy. 1993, Radiation Therapy on the right side. 2001, Implant on the left side. Prior Study Comparison: 09/19/2015 Bilateral MG screening mammo w CAD - 2, [facility]. Tissue Density: Left: The breast tissue is heterogeneously dense. This may lower the sensitivity of mammography. Findings: There is a focal asymmetry in the upper outer aspect left breast present previously. No suspicious groups of microcalcifications, spiculated or lobular masses, architectural distortion or other secondary signs of malignancy are mammographically apparent. Overall Assessment: Benign, BI-RAD 2 Management: Screening Mammogram of the left breast in 1 year. A negative mammogram report should not preclude additional follow up of suspicious palpable abnormalities. Patient should continue monthly self breast exam. A clinical breast exam by your physician is recommended on an annual basis and results should be correlated with mammographic findings. Electronically signed and approved by: Clem Helms D.O. Radiologis
== END | disposition home or self-care (01) ==
LOC: RADMAMWWP 12:58
PROVIDERS: ATTEND Family Medicine
DX: Z12.31 Encounter for screening mammogram for malignant neoplasm of breast (principal)
CPT/HCPCS: 77067

== ENCOUNTER → 2024-07-27 | Outpatient (CLI) | payer MEDICARE, BC ==
[2024-07-27 15:15] LABS: Basophils # (A) 0.08 X 10*3/uL (0.00-0.10); Basophils % (A) 0.9 %; Eosinophils # (A) 0.22 X 10*3/uL (0.04-0.35); Eosinophils % (A) 2.4 %; HCT 41.7 % (37.2-46.3); HGB 13.6 g/dL (12.0-15.0); Lymphocytes # (A) 2.88 X 10*3/uL (0.90-5.00); MCH 32.1 pg (27.0-32.0); MCHC 32.6 g/dL (32.0-37.0); MCV 98.3 FL (80.0-97.0); Mean Platelet Volume 10.3 FL (9.5-12.2); Monocytes # (A) 0.68 X 10*3/uL (0.20-1.00); Monocytes % (A) 7.5 %; NRBC Per 100 WBC 0 X 10*3/uL (0.00-0.01); Neutrophils # (A) 5.13 X 10*3/uL (1.80-7.70); Platelet Count 279 X 10*3/uL (140-440); RBC 4.24 X 10*6/uL (4.10-5.20); RDW 12.9 % (11.5-14.5); WBC 9.01 X 10*3/uL (4.50-10.00)
[2024-07-27 15:25] LABS: Erythrocyte Sedimentation Rate 65 mm/Hr (0-30)
[2024-07-27 19:08] LABS: ALT 14 U/L (8-44); AST 18 U/L (13-35); Albumin 4.4 g/dL (3.8-4.9); Albumin/Globulin Ratio 1.38 Ratio (1.60-3.17); Alkaline Phosphatase 127 U/L (41-126); BUN/Creat Ratio 18.33 Ratio (12.00-20.00); Chloride 101 mmol/L (96-109); Chol/HDL Ratio 3.77 Ratio; Globulin 3.2 g/dL (1.6-3.3); Glucose 97 mg/dL (70-110); LDL Cholesterol,Calculated 160.6 mg/dL (0.0-131.0); Potassium 3.9 mmol/L (3.5-5.5); Sodium 140 mmol/L (135-145); Total Bilirubin 0.5 mg/dL (0.3-1.2); Total Protein 7.6 g/dL (6.2-8.2)
[2024-07-27 19:41] LABS: Rheumatoid Factor, Qnt <15 IU/mL (0-15)
== END | disposition home or self-care (01) ==
LOC: LABWHC1 09:11
PROVIDERS: ATTEND Family Medicine
DX: Z13.220 Encounter for screening for lipoid disorders (principal); Z13.29 Encounter for screening for other suspected endocrine disorder; I48.11 Longstanding persistent atrial fibrillation; K58.0 Irritable bowel syndrome with diarrhea; M25.562 Pain in left knee; M17.12 Unilateral primary osteoarthritis, left knee; L40.9 Psoriasis, unspecified; M79.89 Other specified soft tissue disorders
CPT/HCPCS: 36415; 80053; 80061; 82306; 82607; 83036; 84443; 85025; 85652; 86038; 86140; 86431

== ENCOUNTER → 2024-09-22 | Outpatient (CLI) | payer MEDICARE, BC ==
--- NOTE | 2024-09-22 16:34 | CT ---
EXAMINATION TYPE: CT heart w calcium score DATE OF EXAM: 09/22/2024 COMPARISON: 12/20/2019 HISTORY: Screening for cardiovascular disorder. 213.9 CT DLP: 67.2 mGycm Automated exposure control for dose reduction was used. CT CALCIUM SCORING Coronary calcium is a marker for plaque (fatty deposits) in a blood vessel or atherosclerosis (harden ing of the arteries). The presence and amount of calcium detected in a coronary artery by the CT sca n, indicates the presence and amount of atherosclerotic plaque. These calcium deposits appear years before the development of heart disease symptoms such as chest pain and shortness of breath. A calcium score is computed for each of the coronary arteries based upon the volume and density of th e calcium deposits. This can be referred to as your calcified plaque burden. It does not correspond directly to the percentage of narrowing in the artery but does correlate with the severity of the un derlying coronary atherosclerosis. PROCEDURE TECHNIQUE - Prospective Gating was used. Slice thickness: 3mm. Density threshold (HU): 130, Pixel threshold: 3, Algorithm: discrete. RESULTS Region: LM Calcium Score ([place]): 6.63 Volume (mm3): 9.94 Mass (g): 3.31 Region: RCA Calcium Score ([place]): 5.15 Volume (mm3): 9.39 Mass (g): 3.13 Region: LAD Calcium Score ([place]): 194.9 Volume (mm3): 156.8 Mass (g): 52.27 Region: CX Calcium Score ([place]): 95.45 Volume (mm3): 104.35 Mass (g): 34.78 Region: PDA Calcium Score ([place]): 0 Volume (mm3): 0 Mass (g): 0 Total: Calcium Score ([place]): 301.83 Volume (mm3): 280.48 Mass (g): 93.49 TOTAL CALCIUM SCORE: 301.83 IMPRESSION: Calcium Score: 101-400 Implication: Definite, at least moderate atherosclerotic plaque. Risk of Coronary Artery Disease: Mild coronary artery disease highly likely, significant narrowings p ossible CALCIUM SCORE IMPLICATION RISK OF C ORONARY ARTERY DISEASE 0 No identifiable plaque Very low, generally less than 5% 1-10 Minimal identifiable plaque Very unlikely, less than 10% 11-100 Definite, at least mild atherosclerotic plaque Mild or m inimal coronary narrowings likely 101-400 Definite, at least moderate atherosclerotic plaque Mild coronary ar bill disease highly likely, significant narrowing possible 401 or Higher Extensive atherosclerotic plaque High lik elihood of at least one significant coronary narrowing [facility], , 09/22/2024 4:31 PM
== END | disposition home or self-care (01) ==
LOC: RADCTMAIN 15:08
PROVIDERS: ATTEND Family Medicine
CPT/HCPCS: 75571